=== PATIENT | female | born 1945 | race Caucasian/White ===

== ENCOUNTER 2018-04-01 10:00 | Inpatient (IN) | payer MEDICARE, OTHER ==
[2018-04-01 10:46] LABS: Bilirubin Small (Negative); Blood, Urine Moderate (Negative); Clarity Slightly Cloudy (Clear); Glucose, Urine (Dipstick) 100 mg/dL (Negative); Leukocyte Small (Negative); Nitrite Negative (Negative); Protein, Urine (Dipstick) 100 mg/dL (Neg-Trace); Specific Gravity, Urine 1.015 (1.005-1.030); Urobilinogen > or = 8.0 mg/dL (0.2-1.0); pH, Urine 6.5 (5.0-9.0)
[2018-04-01 10:50] LABS: Bacteria/HPF 1+ HPF (None Seen); Oval Fat Bodies/HPF Rare HPF (None Seen); Squamous Epithelial 0-3 HPF (0-3)
[2018-04-01 10:51] LABS: Hyaline Casts/LPF 0-3 HYALINE CAST LPF (0-3 Hyaline); Other Casts/LPF 0-3 FINELY GRAN LPF (0-3 Hyaline)
[2018-04-01 10:51] LABS: #Basophils 0.1 thou/uL (0.0-0.2); #Eosinphils 0.1 thou/uL (0.0-0.7); #Lymphocytes 1.5 thou/uL (1.20-3.40); #Monocytes 1.4 thou/uL (0.11-0.59); #Neutrophils 16.7 thou/uL (1.40-6.50); %Basophils 0.5 % (0.0-1.0); %Eosinophils 0.5 % (0.0-10.0); %Lymphocytes 7.5 % (21.0-51.0); %Neutrophils 84.6 % (42.0-75.0); Mean Corpuscular HGB CONC 33.5 g/dL (32.0-36.0); Mean Corpuscular Hemoglobin 30.9 pg (27.0-31.0); Mean Corpuscular Volume 92.2 fL (78.0-98.0); Platelet Count 329 thou/uL (130-400); RBC Distribution Width 12.1 % (11.5-14.5); Red Blood Cell (RBC) Count 4.21 mill/uL (4.20-5.40); White Blood Cell (WBC) Count 19.8 thou/uL (4.8-10.8)
[2018-04-01] MEDS ORDERED: Ketorolac Tromethamine 30 MG/ML VIAL ONE (11:00)
[2018-04-01] MEDS ORDERED: Ondansetron PF 4 MG/2 ML Vial ONE ×2 (11:00→12:35)
[2018-04-01 11:08] LABS: AST (SGOT) 22 U/L (5-34); Anion Gap 19 mmol/L (10-20); CKMB 0.8 ng/mL (0-6.6); Calc. Creatinine Clearance 0 mL/min (70-130); Calcium 9.4 mg/dL (7.8-10.44); Carbon Dioxide 25 mmol/L (23-31); Chloride 94 mmol/L (98-107); Estimated GFR-MDRD 82; Potassium 3.2 mmol/L (3.5-5.1); Protein, Total 6.1 g/dL (6.0-8.3); Sodium 135 mmol/L (136-145)
[2018-04-01 11:36] LABS: ALT (SGPT) 26 U/L (8-55); Albumin 3.6 g/dL (3.4-4.8); Alkaline Phosphatase 94 U/L (40-150); BUN (Urea Nitrogen) 12 mg/dL (9.8-20.1); CK (CPK) 15 U/L (29-168); Globulin 2.5 g/dL (2.4-3.5); Glucose 146 mg/dL (83-110)
[2018-04-01] MEDS ORDERED: cefTRIAXone\\ROCEPHIN 1 GM VIAL ONE (11:42)
[2018-04-01] MEDS ORDERED: Sodium Chloride 0.9% 100 ML ONE (11:42)
--- NOTE | 2018-04-01 11:46 | CT ---
CT OF ABDOMEN AND PELVIS PERFORMED WITHOUT CONTRAST ENHANCEMENT: Date: 04/01/18 HISTORY: Lower abdominal pain, off and on chest pain with deep breaths. FINDINGS: There are tiny bilateral pleural effusions present. There is a right middle lobe infiltrate present. The liver, spleen, and pancreas appear unremarkable given the limitations of a noncontrast study. A f airly large gallstone is seen in the fundus region of the gallbladder. Right and left adrenal glands, and right and left kidneys are normal in size. There is no significant periaortic or mesenteric adenopathy. CT of pelvis was performed without contrast enhancement. Sigmoid diverticulosis is noted. There is no evidence of any inflammatory process. There is some trace free fluid noted. Appendix is difficult to definitively identify, but no inflammatory change in this region. IMPRESSION: 1. Right middle lobe infiltrate. 2. Gallstone. 3. Sigmoid diverticulosis. POS: [facility]
--- NOTE | 2018-04-01 11:54 | RAD ---
PORTABLE CHEST: Date: 04/01/18 HISTORY: Chest pain and cough. FINDINGS: There is an indistinct right heart border consistent with some right middle lobe infiltrative lung ch anges. Surgical clips are noted in the left axilla. Heart size is borderline. IMPRESSION: Right middle lobe infiltrate. POS: [facility]
[2018-04-01] MEDS ORDERED: Azithromycin 500 MG VIAL ONE ×3 (12:22→12:24)
[2018-04-01] MEDS ORDERED: diphenhydrAMINE 50 MG/ML VIAL ONE (12:39)
[2018-04-01] MEDS ORDERED: Ondansetron PF 4 MG/2 ML Vial IVP PRN ×4 (13:46→16:42)
[2018-04-01] MEDS ORDERED: Acetaminophen 325 MG TAB PO PRN (13:46)
[2018-04-01] MEDS ORDERED: Ondansetron ODT 4 MG TAB PO PRN ×2 (13:46→16:42)
[2018-04-01 13:53] VITALS: BMI 22.8
[2018-04-01] MEDS ORDERED: Prevnar 13-Val Conj/PF 0.5 ML SYRINGE IM ONE (14:15)
[2018-04-01] MEDS ORDERED: ISOVUE-370 76%-LOCM 1 ML ONE (16:36)
[2018-04-01] MEDS ORDERED: Dextrose 5% in Water 1,000 ML IV PRN (16:42)
[2018-04-01] MEDS ORDERED: Dextrose 50% Abboject 50 ML SYRINGE SLOW IVP PRN (16:42)
[2018-04-01] MEDS ORDERED: hydrALAZINE 20 MG/ML VIAL SLOW IVP PRN (16:42)
[2018-04-01] MEDS ORDERED: HumaLOG 300 UNITS/3 ML VIAL SC PRN ×2 (16:42)
--- NOTE | 2018-04-01 17:33 | CT ---
EXAM: CT ANGIOGRAM CHEST WITH 3D RENDERIN04/01/18 HISTORY: Chest pain. Abdominal pain. Cough. Subjective fever. There is evidence for a right pleural effusion, small. There are confluent parenchymal changes in the right middle lobe with what appears to be some associated atelectasis, evidence for pneumonia and vo lume loss. In the right upper lobe, there are patchy ground glass opacity changes and some alveolar p arenchymal changes, evidence for right upper lobe pneumonia. These parenchymal changes appear more ma rked than on a prior chest x-ray of 04/01/18. There is no mediastinal mass or adenopathy. No CT convinc ing CT evidence for acute pulmonary embolism. No pericardial effusion. The visualized upper abdomen i s unremarkable except for small hiatal hernia. IMPRESSION: No convincing CT evidence for acute pulmonary embolism. Small right pleural effusion with right middl e lobe confluent parenchymal changes and minimal volume loss, evidence for pneumonia and/or atelectas is. Prominent patchy parenchymal changes in the right upper lobe. Evidence for right upper lobe pneu monia. Scattered chronic lung changes with some pleural based parenchymal changes bilaterally and lissa e minimal scattered bullous changes, particularly in the upper lung zones bilaterally. POS: [facility]
[2018-04-01] MEDS: Sodium Chloride 0.9% 1,000 ML IV SCH (17:35)
[2018-04-01] MEDS: Acetaminophen 325 MG TAB PO PRN ×2 (18:33→21:32)
[2018-04-01] MEDS ORDERED: Calcium Carbonate 600 MG TAB PO SCH (21:00)
[2018-04-01] MEDS: Calcium Carbonate 600 MG TAB PO SCH (21:31)
--- NOTE | 2018-04-01 22:56 | HP ---
PRIMARY CARE PHYSICIAN: Dr. Plascencia. CHIEF COMPLAINT: Blood in the urine. HISTORY OF PRESENT ILLNESS: Ms. Bowden is a pleasant 73-year-old female who has a history of hypertension and diabetes mellitus. She also has a history of breast cancer as well as sciatica. She says that on the day of admission, she noticed some blood in her urine. She also states that after she noticed a small amount of blood, she says that she has not been able to go to the bathroom since. She also says that she was having some severe pain in the right side of her chest. She says this started a couple of days ago. She describes the pain as like a knife going straight through her chest. She says it is worse when she takes in a deep breath. She says she also has had some cough with this off and on as well as some fever and chills over the past week. She denies any dyspnea, however. She also notes that about close to a week ago, about 5 days ago she had some severe pain in her left hip. She says the pain was so bad that she just wanted to pass out. She says she admits that she was trying to self medicate and she drank quite a bit of alcohol, she says in order to get rid of the pain. After doing this, she had an episode of nausea and she vomited. She said just one time. It is unclear whether or not she had any abdominal pain associated with this that she did not really answer me directly, but says that she has had pain in her left hip off and on. She apparently had gone to the ER at [facility] in [place] due to the hip pain. She says that they did some x-rays of her lumbar spine as well as her hip and said that she may have had some type of disk narrowing at the L4-L5 region. Currently, she denies any flank pain. She also says that she denies any sick contacts. She denies having any cold-like symptoms. However, she has had a very poor appetite and she says that she has been feeling generally weak and says that she has not had much as far as oral intake lately. REVIEW OF SYSTEMS: All systems were reviewed and are negative except for that mentioned in the history of present illness. PAST MEDICAL HISTORY: Significant for hypertension, diabetes mellitus, breast cancer, which was diagnosed in 2008 as well as sciatica. PAST SURGICAL HISTORY: She has had a mastectomy in 2009, ganglion cyst removed, surgery for tenosynovitis as well as an ORIF of her ankle. ALLERGIES: SHE SAYS IT IS TO SOME TYPE OF HEART MEDICATION AND SHE SAID SHE HAD A REACTION TO AN ANTIBIOTIC ON THE WAY TO THE HOSPITAL. SOCIAL HISTORY: She is a former smoker. She quit in 1987 and she smoked for at least 40 years prior to that. She also occasionally drinks. She says on Tuesday, Wednesdays, and the weekends and 4 beers each night. She is currently engaged. Her medical power of revenue stamper is her daughter, Marilia Brooks and she would like to be a full code. FAMILY HISTORY: Significant for dementia as well as there is diabetes in the family. Her father and sister had cancer. CURRENT MEDICATIONS: Include: 1. Metformin 1000 mg twice daily. 2. Multivitamin once daily. 3. Zetia 10 mg daily. 4. Lisinopril 20 mg daily. 5. Anastrozole 1 mg daily. 6. Calcium carbonate 600 mg twice daily. PHYSICAL EXAMINATION: GENERAL: She is alert and oriented. She appears to be in no acute distress. She is well-developed and well-nourished. VITAL SIGNS: Blood pressure was 154/76, heart rate 96, respiratory rate of 18, temperature is 97.8, and O2 saturation is 95% on room air. HEENT: Pupils are equal, round, and reactive. Extraocular muscles are intact. Her sclerae anicteric. Throat, there is no erythema, no exudates. NECK: No adenopathy, no bruits. LUNGS: Essentially clear. She did have some rales in the right mid lung field; however it cleared with cough. There were no E to A changes. CARDIOVASCULAR: She had a normal S1, S2, and an occasional skipped beat. She did have a grade 2/6 systolic murmur. ABDOMEN: Soft. It is nontender and nondistended. Positive for bowel sounds. There is no rebound, no guarding. No organomegaly. EXTREMITIES: There was no clubbing or cyanosis. No edema. NEUROLOGIC: Her muscle strength is 5/5 in both her upper and lower extremities. Her reflex in the left patellar reflex was diminished as compared to the right. She was able to dorsiflex and plantar flex both feet and she had negative straight leg raises. LABORATORY DATA: Her sodium was 135, potassium 3.2, chloride is 94, CO2 is 25, BUN of 12, creatinine 0.7, glucose is 146. Her troponin is less than 0.010. Lactic acid was 1.8. White blood cell count is 19.8, hemoglobin 13, hematocrit is 38.8, platelet count is 329. Urinalysis was significant for moderate blood, small leukocyte esterase, 1+ bacteria and 7-10 white blood cells. She had a CT scan of the abdomen and pelvis, showing a right middle lobe infiltrate. There is a gallstone and sigmoid diverticulosis. Chest x-ray, there was normal heart size and she did have some haziness in the right middle lobe. ASSESSMENT: This is a 73-year-old female who presents with multiple medical complaints to the emergency room. 1. Hematuria and what sounds like possible urinary retention. She has some findings consistent with urinary tract infection. However, we will also need to check, if she has any urine retention by doing a postvoid residual and if she has any significant residual, then the Gallegos catheter needs to be placed. There was no mention of any hydronephrosis on her CT scan. However, should she have significant postvoid residual, then we may need to check a renal ultrasound. 2. Chest pain. This is pleuritic in nature. Her chest x-ray showed some findings consistent with a right middle lobe pneumonia as well as the CT scan. She also has an elevated white blood cell count as well. However, her D-dimer is significantly elevated and her chest pain seems to be out of proportion for pneumonia. For this reason, we will go ahead and get a CT angiogram of the chest just to make sure there is no superimposed pulmonary embolism, especially in the setting of a patient who has a history of breast cancer. 3. Severe back pain. More than likely this does represent merely sciatica, it seems to be improved. However, the concern is for the decrease in the reflex on the left as well as the "urinary retention." It appears as if she has not had an imaging besides plain films of the back. Therefore, she is able to take an MRI. We will get an MRI of the lumbar spine. 4. Diabetes mellitus. We will go ahead and hold the metformin for now given that we are going to order a CT scan and place her on a sliding scale insulin for now. 5. For hypertension, we will go ahead and continue lisinopril and place her on p.r.n. medications. The patient will also be placed on deep venous thrombosis as well as gastrointestinal prophylaxis. Job ID: [id number]
[2018-04-01] MEDS ORDERED: Potassium Chloride 20 MEQ TAB PO SCH (23:00)
[2018-04-01] MEDS ORDERED: cefTRIAXone\\ROCEPHIN 1 GM in Sodium Chloride 0.9% 100 ML IVPB SCH (23:00)
[2018-04-01] MEDS ORDERED: Ketorolac Tromethamine 15 MG/ML VIAL IVP SCH (23:30)
[2018-04-01] MEDS ORDERED: Acetaminophen 1,000 MG in Premix Bag 1 BAG IVPB SCH (23:30)
[2018-04-01] MEDS: Ondansetron ODT 4 MG TAB PO PRN (23:32)
[2018-04-01] MEDS: Ketorolac Tromethamine 30 MG/ML VIAL IVP SCH (23:33)
[2018-04-02] MEDS ORDERED: Gabapentin 100 MG CAP PO SCH (03:15)
[2018-04-02] MEDS: Ketorolac Tromethamine 30 MG/ML VIAL IVP PRN ×3 (04:49→21:10)
[2018-04-02] MEDS: Sodium Chloride 0.9% 1,000 ML IV SCH ×2 (06:09→18:12)
[2018-04-02 07:45] LABS: #Eosinphils 0.1 thou/uL (0.0-0.7); #Lymphocytes 1.2 thou/uL (1.20-3.40); #Monocytes 1.5 thou/uL (0.11-0.59); %Basophils 0.1 % (0.0-1.0); %Lymphocytes 9.3 % (21.0-51.0); %Monocytes 11.4 % (0.0-10.0); %Neutrophils 78.1 % (42.0-75.0); Hemoglobin 10.3 g/dL (12.0-16.0); Mean Corpuscular HGB CONC 33.1 g/dL (32.0-36.0); Mean Corpuscular Hemoglobin 31.3 pg (27.0-31.0); Mean Corpuscular Volume 94.4 fL (78.0-98.0); Mean Platelet Volume 6.6 fL (7.4-10.4); Platelet Count 335 thou/uL (130-400); RBC Distribution Width 11.6 % (11.5-14.5); Red Blood Cell (RBC) Count 3.29 mill/uL (4.20-5.40); White Blood Cell (WBC) Count 12.7 thou/uL (4.8-10.8)
[2018-04-02 08:05] LABS: Anion Gap 10 mmol/L (10-20); BUN (Urea Nitrogen) 9 mg/dL (9.8-20.1); Calc. Creatinine Clearance 82 mL/min (70-130); Carbon Dioxide 27 mmol/L (23-31); Chloride 101 mmol/L (98-107); Estimated GFR-MDRD Greater than 90; Glucose 158 mg/dL (83-110); Potassium 3.3 mmol/L (3.5-5.1); Sodium 135 mmol/L (136-145)
[2018-04-02] MEDS: Enoxaparin Sodium 40 MG/0.4 ML SYRINGE SC SCH (08:20)
[2018-04-02] MEDS: Multivit, Therapeutic 1 TAB PO SCH (08:21)
[2018-04-02] MEDS: Gabapentin 100 MG CAP PO SCH ×3 (08:21→21:09)
[2018-04-02] MEDS: Ezetimibe 10 MG TAB PO SCH (08:21)
[2018-04-02] MEDS: Lisinopril 20 MG TAB PO SCH (08:21)
[2018-04-02] MEDS: Anastrozole 1 MG TAB PO SCH (08:21)
[2018-04-02] MEDS: Saccharomyces boulardii 250 MG CAP PO SCH (08:21)
[2018-04-02] MEDS: Calcium Carbonate 600 MG TAB PO SCH ×2 (08:22→21:09)
[2018-04-02] MEDS ORDERED: Non-Formulary Item 1 EACH (Multivitamin [Multi-Vitamin Daily] 1 TAB) PO SCH (09:00)
[2018-04-02] MEDS ORDERED: Anastrozole 1 MG TAB PO SCH (09:00)
[2018-04-02] MEDS ORDERED: Potassium Chloride 20 MEQ TAB PO SCH (09:30)
[2018-04-02] MEDS: metroNIDAZOLE 500 MG in Premix Bag 1 BAG IVPB SCH ×2 (09:58→18:07)
--- NOTE | 2018-04-02 12:02 | MRI ---
MRI OF THE LUMBAR SPINE WITH AND WITHOUT IV CONTRAST: Date: 04/02/18 INDICATION: 73-year-old female with left-sided back pain that radiates into the left leg and into the arch of the foot for 2-3 days. History of breast cancer and double mastectomy. TECHNIQUE: Multiplanar, multisequence MR images were obtained of the lumbar spine with and without IV contrast u tilizing 15 mL of MultiHance. Comparison made with CT of the abdomen and pelvis dated 04/01/18. FINDINGS: The conus is seen to terminate at approximately T12-L1. Conus demonstrates normal signal intensity an d contour. There are mild Modic end plate degenerative changes at L4-5. At L5-S1, there is a broad based bulge with small central disc protrusion without appreciable central canal or neural foraminal narrowing. At L4-5, there is a broad based disc bulge with facet osteoarthrosis without appreciable central josie l or neural foraminal narrowing. At L3-4, there is a mild broad based bulge without appreciable central canal or neural foraminal narr owing. At L2-3, there is a mild broad based bulge, but no appreciable central canal or neural foraminal narr owing. At L1-2, there is a mild broad based bulge without appreciable central canal narrowing. There is some mild neural foraminal encroachment. At T12-L1, there is a mild broad based bulge, but no appreciable central canal or neural foraminal na rrowing. Anterior to the L2 vertebra is a 1.5 cm T2 hyperintense, T1 hypointense, peripherally enhancing lesio n just anterior to the L2 vertebral body. This lesion is predominantly hypodense on the comparison CT examination. No additional area of abnormal enhancement is demonstrated. There is a small T2 hyperintense, T1 heterogeneous lesion within T11 measuring 7.0 mm with associated enhancement, most suspicious for a small atypical bony hemangioma. There is nonspecific mild free fluid in the pelvis. IMPRESSION: 1. Mild to moderate spondylosis of the lumbar spine. 2. T2 hyperintense, peripherally enhancing lesion seen anterior to the L2 vertebral body with no def inite appreciable aggressive features. Findings may reflect a vascular malformation or possibly a for egut duplication cyst. As a conservative measure, would recommend a follow-up MRI examination in 3 mo nths to document stability. 3. No evidence of metastatic disease to the visualized aspects of the thoracolumbar spine. POS: [facility]
[2018-04-02] MEDS ORDERED: HYDROcodone/Acetaminophen 5/325 mg Tablet PO PRN (12:10)
[2018-04-02] MEDS ORDERED: Magnesium 2 GM/50 ML 2 GM in Premix Bag 1 BAG IVPB SCH (12:15)
[2018-04-02] MEDS: HYDROcodone/Acetaminophen 10/325 mg Tablet PO PRN ×2 (13:56→21:07)
--- NOTE | 2018-04-02 14:27 | PDOC.PN ---
- Subjective Encounter Start Date: 04/02/18 Encounter Start Time: 13:00 Ms. Bowden was seen today in follow-up of Pneumonia, and UTI. She is complaining of pain on the right side, when she takes in a deep breath. She also continues to have a poor appetite. - Objective Resuscitation Status - Order Detail: 04/01/18 15:50 Resuscitation Status Routine Resuscitation Status: FULL: Full Resuscitation MAR Reviewed: Yes Vital Signs & Weight: Vital Signs (12 hours) Temp Pulse Resp BP Pulse Ox 04/02/18 12:12 98.2 F 88 18 150/83 H 92 L 04/02/18 08:00 97 04/02/18 07:59 98.5 F 76 19 150/78 H 97 04/02/18 04:05 98.3 F 79 16 135/79 96 04/02/18 04:00 98.3 F 82 18 135/75 96 Weight Weight 142 lb I&O: 04/01/18 04/02/18 04/03/18 06:59 06:59 06:59 Intake Total 2120 Balance 2120 Result Diagrams: 04/02/18 07:13 04/02/18 07:13 Additional Labs: Accuchecks 04/02/18 04/02/18 04/01/18 12:12 05:54 19:23 POC Glucose 132 H 184 H 229 H 04/01/18 16:46 POC Glucose 203 H Phys Exam - Physical Examination HEENT: PERRLA Respiratory: no wheezing, no rhonchi + faint rales in the right base Cardiovascular: RRR, no significant murmur, no rub Gastrointestinal: soft, non-tender, no distention, positive bowel sounds Musculoskeletal: no edema, pulses present Dx/Plan (1) Pneumonia, community acquired Code(s): J18.9 - PNEUMONIA, UNSPECIFIED ORGANISM Status: Acute (2) Sepsis Code(s): A41.9 - SEPSIS, UNSPECIFIED ORGANISM Status: Acute (3) Hypokalemia Code(s): E87.6 - HYPOKALEMIA Status: Acute (4) Hypomagnesemia Code(s): E83.42 - HYPOMAGNESEMIA Status: Acute - Plan * Pneumonia- Probable Strep Pneumonia- as one of her blood cultures is positive for this organism- will continue Levaquin. Can likely discontinue Flagyl in the AM * UTI- urine culture was not done- Will seeif one can be run on the UA from [facility] * Hematuria- I suspect due to UTI * Urine retention- ruled out- she did not have a large post void residual * Back Pain and Hip pain- likely from DJD- MRI results noted * Hypokalemia and Hypomagnesemia- will replace * Hopefully home in a day or two
[2018-04-02] MEDS: Ondansetron ODT 4 MG TAB PO PRN (21:07)
[2018-04-02] MEDS: Ketorolac Tromethamine 30 MG/ML VIAL IVP SCH (23:39)
[2018-04-03] MEDS: metroNIDAZOLE 500 MG in Premix Bag 1 BAG IVPB SCH ×3 (01:58→18:15)
[2018-04-03] MEDS: Sodium Chloride 0.9% 1,000 ML IV SCH ×3 (02:00→21:08)
[2018-04-03] MEDS: Ibuprofen 800 MG TAB PO PRN (04:18)
[2018-04-03] MEDS: HYDROcodone/Acetaminophen 10/325 mg Tablet PO PRN ×2 (04:18→17:02)
[2018-04-03 06:13] LABS: #Eosinphils 0.2 thou/uL (0.0-0.7); #Lymphocytes 1.2 thou/uL (1.20-3.40); #Monocytes 1.2 thou/uL (0.11-0.59); #Neutrophils 6.7 thou/uL (1.40-6.50); %Basophils 0.3 % (0.0-1.0); %Eosinophils 2.4 % (0.0-10.0); %Monocytes 12.6 % (0.0-10.0); %Neutrophils 71.7 % (42.0-75.0); Hemoglobin 9.5 g/dL (12.0-16.0); Mean Corpuscular HGB CONC 33.1 g/dL (32.0-36.0); Mean Corpuscular Hemoglobin 31.9 pg (27.0-31.0); Mean Corpuscular Volume 96.6 fL (78.0-98.0); Mean Platelet Volume 6.4 fL (7.4-10.4); Platelet Count 347 thou/uL (130-400); RBC Distribution Width 11.7 % (11.5-14.5); Red Blood Cell (RBC) Count 2.97 mill/uL (4.20-5.40); White Blood Cell (WBC) Count 9.4 thou/uL (4.8-10.8)
[2018-04-03 06:31] LABS: Anion Gap 11 mmol/L (10-20); BUN (Urea Nitrogen) 8 mg/dL (9.8-20.1); Calc. Creatinine Clearance 80 mL/min (70-130); Calcium 8.9 mg/dL (7.8-10.44); Carbon Dioxide 28 mmol/L (23-31); Chloride 99 mmol/L (98-107); Estimated GFR-MDRD Greater than 90; Glucose 128 mg/dL (83-110); Potassium 3.3 mmol/L (3.5-5.1); Sodium 135 mmol/L (136-145)
[2018-04-03] MEDS: Anastrozole 1 MG TAB PO SCH (08:23)
[2018-04-03] MEDS: Gabapentin 100 MG CAP PO SCH ×3 (08:24→20:55)
[2018-04-03] MEDS: Lisinopril 20 MG TAB PO SCH (08:24)
[2018-04-03] MEDS: Saccharomyces boulardii 250 MG CAP PO SCH (08:24)
[2018-04-03] MEDS: Ezetimibe 10 MG TAB PO SCH (08:24)
[2018-04-03] MEDS: Calcium Carbonate 600 MG TAB PO SCH ×2 (08:24→20:55)
[2018-04-03] MEDS: Multivit, Therapeutic 1 TAB PO SCH (08:24)
[2018-04-03] MEDS: Enoxaparin Sodium 40 MG/0.4 ML SYRINGE SC SCH (08:25)
[2018-04-03] MEDS: Potassium Chloride 20 MEQ TAB PO SCH ×2 (08:32→17:03)
--- NOTE | 2018-04-03 12:05 | PDOC.PN ---
- Subjective Encounter Start Date: 04/03/18 Encounter Start Time: 11:59 Ms. Bowden was seen today in follow-up of Pneumonia. She says she is feeling much better. - Objective Resuscitation Status - Order Detail: 04/01/18 15:50 Resuscitation Status Routine Resuscitation Status: FULL: Full Resuscitation MAR Reviewed: Yes Vital Signs & Weight: Vital Signs (12 hours) Temp Pulse Resp BP Pulse Ox Pulse Ox Pulse Ox 04/03/18 09:05 96 96 04/03/18 07:58 98.5 F 85 18 149/74 H 94 L Weight Weight 142 lb I&O: 04/02/18 04/03/18 04/04/18 06:59 06:59 06:59 Intake Total 2120 Balance 2120 Result Diagrams: 04/03/18 05:12 04/03/18 05:12 Additional Labs: Accuchecks 04/03/18 04/02/18 04/02/18 04:23 20:56 16:17 POC Glucose 146 H 173 H 205 H 04/02/18 12:12 POC Glucose 132 H Phys Exam - Physical Examination HEENT: PERRLA Respiratory: no wheezing, no rales, no rhonchi, clear to auscultation bilateral Cardiovascular: RRR, no significant murmur, no rub Gastrointestinal: soft, non-tender, no distention, positive bowel sounds Musculoskeletal: no edema Dx/Plan (1) Pneumonia, community acquired Code(s): J18.9 - PNEUMONIA, UNSPECIFIED ORGANISM Status: Acute (2) Sepsis Code(s): A41.9 - SEPSIS, UNSPECIFIED ORGANISM Status: Acute (3) Hypokalemia Code(s): E87.6 - HYPOKALEMIA Status: Acute (4) Hypomagnesemia Code(s): E83.42 - HYPOMAGNESEMIA Status: Acute - Plan * .Pneumonia- clinically improved * Cholelithiasis- she does not have symptoms consistent with acute cholecysytitis * She is stable for discharge home
[2018-04-03] MEDS: Ondansetron ODT 4 MG TAB PO PRN (15:36)
--- NOTE | 2018-04-03 16:36 | PDOC.EVN ---
Event Note - Event Note Event Note: The patient's discharge was held as because she began to feel weak and nauseated.
[2018-04-04] MEDS: HYDROcodone/Acetaminophen 10/325 mg Tablet PO PRN (01:20)
[2018-04-04] MEDS: metroNIDAZOLE 500 MG in Premix Bag 1 BAG IVPB SCH ×2 (01:22→10:07)
[2018-04-04] MEDS: Ibuprofen 800 MG TAB PO PRN (05:51)
[2018-04-04] MEDS: Lisinopril 20 MG TAB PO SCH (07:44)
[2018-04-04] MEDS: Enoxaparin Sodium 40 MG/0.4 ML SYRINGE SC SCH (07:44)
[2018-04-04] MEDS: Anastrozole 1 MG TAB PO SCH (07:45)
[2018-04-04] MEDS: Potassium Chloride 20 MEQ TAB PO SCH (07:45)
[2018-04-04] MEDS: Multivit, Therapeutic 1 TAB PO SCH (07:45)
[2018-04-04] MEDS: Saccharomyces boulardii 250 MG CAP PO SCH (07:45)
[2018-04-04] MEDS: Calcium Carbonate 600 MG TAB PO SCH (07:45)
[2018-04-04] MEDS: Gabapentin 100 MG CAP PO SCH (07:45)
[2018-04-04] MEDS: Ezetimibe 10 MG TAB PO SCH (07:46)
[2018-04-04 07:55] VITALS: BP 183/84; TEMP 98.1
--- NOTE | 2018-04-04 11:02 | PDOC.PN ---
- Subjective Encounter Start Date: 04/04/18 Encounter Start Time: 11:01 Ms. Bowden was seen today in follow-up. She says she feels " great " - Objective Resuscitation Status - Order Detail: 04/01/18 15:50 Resuscitation Status Routine Resuscitation Status: FULL: Full Resuscitation MAR Reviewed: Yes Vital Signs & Weight: Vital Signs (12 hours) Temp Pulse Resp BP Pulse Ox 04/04/18 08:00 92 L 04/04/18 07:51 98.1 F 86 18 183/84 H 90 L Weight Weight 142 lb I&O: 04/03/18 04/04/18 04/05/18 06:59 06:59 06:59 Intake Total 1080 240 Balance 1080 240 Result Diagrams: 04/03/18 05:12 04/03/18 05:12 Additional Labs: Accuchecks 04/04/18 04/03/18 04/03/18 05:48 20:32 11:56 POC Glucose 142 H 270 H 212 H Phys Exam - Physical Examination HEENT: PERRLA Respiratory: no wheezing, no rales, no rhonchi, clear to auscultation bilateral Cardiovascular: RRR, no significant murmur, no rub Musculoskeletal: no edema Dx/Plan (1) Pneumonia, community acquired Code(s): J18.9 - PNEUMONIA, UNSPECIFIED ORGANISM Status: Acute (2) Sepsis Code(s): A41.9 - SEPSIS, UNSPECIFIED ORGANISM Status: Acute (3) Hypokalemia Code(s): E87.6 - HYPOKALEMIA Status: Acute (4) Hypomagnesemia Code(s): E83.42 - HYPOMAGNESEMIA Status: Acute - Plan * Pneumonia- resolving * Stable for discharge home.
[2018-04-04] MEDS: Sodium Chloride 0.9% 1,000 ML IV SCH (11:20)
== END 2018-04-04 11:33 | disposition home or self-care (01) | DRG 871 ==
LOC: SCSER 10:00 → T4-A 11:23
PROVIDERS: ADMIT Internal Medicine; ATTEND Internal Medicine
DX: A41.9 Sepsis, unspecified organism (principal); J18.9 Pneumonia, unspecified organism; N39.0 Urinary tract infection, site not specified; E11.9 Type 2 diabetes mellitus without complications; I10 Essential (primary) hypertension; E87.6 Hypokalemia; E83.42 Hypomagnesemia; K80.20 Calculus of gallbladder without cholecystitis without obstruction; M19.90 Unspecified osteoarthritis, unspecified site; R31.9 Hematuria, unspecified; Z90.10 Acquired absence of unspecified breast and nipple; Z85.3 Personal history of malignant neoplasm of breast; Z98.890 Other specified postprocedural states; Z88.1 Allergy status to other antibiotic agents; Z87.891 Personal history of nicotine dependence; Z79.84 Long term (current) use of oral hypoglycemic drugs; Z79.899 Other long term (current) drug therapy
CPT/HCPCS: 36415; 36416; 71045; 71275; 72158; 74176; 80048; 80053; 81003; 81015; 82550; 82553; 83605; 83735; 84484; 85025; 85379; 87040; 87077; 87086; 87149; 87186; 93005; 96361; 96365; 96375; 96376; J0131; J0456; J0696; J1200; J1650; J1885; J1956; J2405; J3475; J7050; Q0162; Q9966

== ENCOUNTER 2020-12-01 11:10 | Outpatient (CLI) | payer MEDICARE, OTHER | END 2020-12-01 11:11 | disposition home or self-care (01) | LOC: BICMAMMO 11:10 | PROVIDERS: ATTEND Family Medicine | DX: Z12.31 Encounter for screening mammogram for malignant neoplasm of breast (principal); Z90.12 Acquired absence of left breast and nipple; Z85.3 Personal history of malignant neoplasm of breast; Z80.3 Family history of malignant neoplasm of breast | CPT/HCPCS: 77063; 77067 ==